=== PATIENT | female | born 1980 | race Caucasian/White ===

== ENCOUNTER 2017-02-25 22:05 | Emergency (ER) | payer BC ==
[~2017-02-25] VITALS: Ht 160 cm; Wt 131.7 kg
[~2017-02-25 22:05] MED LIST: ABILIFY10 MG PO; ABILIFY5 MG; ABILIFY5 MG PO; Antivert PO; COUMADIN,JANTO7.5 MG PO; COUMADIN,JANTOV10 MG; COUMADIN10 MG PO; Coumadin,Jantoven PO; EFFEXOR75 MG; Effexor PO; FIORICET WI1 CAPSULE PO; FIORICET,ESG1 TABLET PO; Flexeril PO; IMITREX6 MG/0.53 SC; Imitrex PO; Imitrex SC; KLONOPIN0.5 M1 PO; KlonoPIN PO; LEXAPRO10 MG PO; LEXAPRO20 MG PO; LORTAB 5-325 M1 EACH PO; PHENERGAN25 MG PR; TOPAMAX100 MG PO; TOPAMAX50 MG; TOPAMAX50 MG PO; VALIUM10 MG PO; VALIUM5 MG PO; WELLBUTRIN XL150 MG PO; ZOFRAN4 MG PO; [UNRECOGNIZED DRUG - SUPPLY]
[2017-02-25 23:24] LABS: BASOPHIL COUNT 0.1 K/uL (0-0.1); EOSINOPHIL (%) 1.4 % (0-5); EOSINOPHIL COUNT 0.2 K/uL (0-0.3); HEMATOCRIT 41.9 % (36.0-46.0); IMMATURE GRANULOCYTE (%) 0.5 % (0.0-0.7); IMMATURE GRANULOCYTE COUNT 0.1 K/uL; INSTRUMENT ABS NEUTROPHIL CT 6.9 K/uL; LYMPHOCYTE COUNT 3.2 K/uL (1.0-2.8); MCH 29.1 PG (29.0-34.0); MCHC 33.4 G/DL (30.0-36.0); MCV 87.1 FL (83-99); MEAN PLAT.VOLUME 12.2 uM^3 (9.5-12.4); MONOCYTE (%) 4.9 % (3-12); MONOCYTE COUNT 0.5 K/uL (0-0.8); NEUTROPHIL (%) 63.2 % (45-76); NEUTROPHIL COUNT 6.9 K/uL (1.8-6.4); PLATELET COUNT 161 K/uL (156-360); RBC DIS.WIDTH-CV 13.7 % (11.8-14.6); RBC DIS.WIDTH-SD 43.8 % (39-53); RED BLOOD COUNT 4.81 M/uL (3.80-5.20); WHITE BLOOD COUNT 10.9 K/uL (4.1-10.2)
[2017-02-25 23:33] LABS: PROTHROMBIN TIME 45.9 SEC (10.2-12.9)
[2017-02-25 23:36] LABS: CHLORIDE 107 mEq/L (99-109); POTASSIUM 3.5 mEq/L (3.7-5.4); PTT 52.4 SEC (25-37); SODIUM 138 mEq/L (136-147)
[2017-02-25 23:38] LABS: GLUCOSE 116 mg/dL (70-99)
[2017-02-25 23:39] LABS: ANION GAP 9 MEQ/L (2-14)
[2017-02-25 23:42] LABS: GFR ESTIMATE (CALCULATED) > 59 mL/min/
[2017-02-25 23:43] LABS: UREA NITROGEN (BUN) 17 mg/dL (9-23)
[2017-02-26 00:08] VITALS: BP 134/78
== END 2017-02-26 00:09 | disposition home or self-care (01) ==
LOC: RME 22:05 → EME 22:05 → RME 02-26 00:09
PROVIDERS: Physician Assistant
DX: D68.61 Antiphospholipid syndrome (principal); Z79.01 Long term (current) use of anticoagulants; R51 Headache; H92.03 Otalgia, bilateral; Z97.5 Presence of (intrauterine) contraceptive device; Z86.718 Personal history of other venous thrombosis and embolism
CPT/HCPCS: 70450; 80048; 85025; 85610; 85730; 99281; 99284